=== PATIENT | female | born 1940 | race Caucasian/White ===

== ENCOUNTER → 2016-11-25 | Day surgery (SDC) | payer OTHER ==
[~2016-11-25] MED LIST: ALEN70 PO; ASPI81 PO; CALC250T PO; EZET10 PO; LACTATED RINGER'S 1000 ML INJ 1,000 ML ONE
== END | disposition home or self-care (01) ==
LOC: ESDC 08:45
PROVIDERS: ATTEND Orthopaedic Surgery Orthopaedic Surgery of the Spine
DX: S62.109A Fracture of unspecified carpal bone, unspecified wrist, initial encounter for closed fracture (principal)
CPT/HCPCS: J7120

== ENCOUNTER → 2016-11-26 | Day surgery (SDC) | payer OTHER ==
[~2016-11-26] MED LIST changes: +KETOROLAC TROMETHAMINE 30 MG/ML (IVP) VIAL IV PUSH ONE; +MIDAZOLAM HCL 2 MG/2 ML VIAL ONE; +ONDANSETRON HCL 4 MG/2 ML VIAL IV PUSH ONE; +PROPOFOL 200 MG/20 ML AMP IV ONE
--- NOTE | 2016-11-26 14:54 | TN ---
cc: CHIVO GUZMAN M.D. DATE OF SURGERY: 11/26/2016. PREOPERATIVE DIAGNOSIS: 1. Right, left wrist Colles fracture. 2. Status post bilateral wrist closed reduction, pins and plaster. POSTOPERATIVE DIAGNOSIS: 1. Right, left wrist Colles fracture. 2. Status post bilateral wrist closed reduction, pins and plaster. OPERATIVE PROCEDURE PERFORMED: Bilateral wrist closed reduction, application of short-arm cast. SURGEON: Chivo Guzman MD. LIFE ADVISOR: Staff. SPECIMENS: None. ESTIMATED BLOOD LOSS: None. COMPLICATIONS: None. ANESTHESIA: General. DRAINS: None. CONDITION: Stable. PLAN OF ACTIVITY: Per orders. INDICATIONS FOR THE PROCEDURE: This 76-year-old female sustained bilateral Colles fractures. Approximately three weeks ago she underwent bilateral wrist closed reduction, pins and plaster. The patient had been overly active at home lifting objects and X-rays show the patient to have lost some of her reduction of her bilateral wrist fractures. It was felt best to maximize the benefit of increasing the results by obtaining another closed reduction and application of a short-arm cast incorporating the preexisting pins for pins and plaster construct again. DESCRIPTION OF THE PROCEDURE IN DETAIL: The patient was into operating room and had satisfactory anesthesia by Dr. Blanc from the department of anesthesia. The right wrist cast and Sof-Rol was removed. Xeroform gauze was also removed. Each skin site was clean with no evidence of drainage and no evidence of infection. Under fluoroscopic guidance, the fracture was reduced with gentle traction and manipulation. There was improvement of the fracture reduction. Under sterile conditions, new Xeroform gauze was applied to the pin sites, sterile Sof-Rol was applied on the hand, wrist and forearm and a short-arm cast was incorporated. The patients left wrist cast was removed. The Sof-Rol was also removed in addition to removal of the Xeroform gauze. It was cleansed with alcohol. The pin sites themselves were clean. No evidence of drainage or infection. New Xeroform gauze in sterile manner was placed around the pin sites. Sterile Sof-Rol was used for the hand, wrist and forearm and a short-arm cast was applied after gentle traction and manipulation. Fluoroscopy showed improvement of the reduction. The patient tolerated the procedure well and went to the recovery room in stable and satisfactory condition. IMAGING STUDIES: X-rays of the right wrist, two views, show status post right wrist closed reduction, pins and plaster. X-rays of the left wrist, two views, show status post closed reduction, pins and plaster. MD KATRIN Moore/DENZEL /2:21 PM /2:37 PM
== END | disposition home or self-care (01) ==
LOC: ESDC 11:42
PROVIDERS: ATTEND Orthopaedic Surgery Orthopaedic Surgery of the Spine
DX: S52.532G Colles' fracture of left radius, subsequent encounter for closed fracture with delayed healing (principal); S52.531G Colles' fracture of right radius, subsequent encounter for closed fracture with delayed healing
CPT/HCPCS: 01820; 25605; 73100; 76000; J1885; J2250; J2405; J3010; J7120